=== PATIENT | male | born 1970 | race Caucasian/White ===

== ENCOUNTER → 2017-07-19 | Outpatient (CLI) | payer BC ==
[2017-07-19 13:16] VITALS: BP 143/96; PULSE 68; TEMP 98.2; BMI 36.0
--- NOTE | 2017-07-19 16:09 | P.HPBAR ---
Bariatric H&P - History & Physicial H&P Date: 07/19/17 History & Physicial: Visit/CC: lap band follow up Patient initial contact: Initial weight: Initial weight in pounds: Height: 6 ft 4 in Initial BMI: Last weight: Current weight: 134.354 kg Current weight in pounds: 296.20 Current BMI: 36.0 [place] body weight (based on NIH guidelines): 91.626 kg Excess body weight loss: The patient is a 47 year-old M who presents for Bariatric Assessment. Patient' s complaints of hunger. He has not been seen in 6 years. Past Medical History Past Medical History: Sleep Apnea/CPAP/BIPAP History of Any Multi-Drug Resistant Organisms: None Reported Past Surgical History: Bariatric Surgery, Cholecystectomy Additional Past Surgical History / Comment(s): lap band 2001 Past Anesthesia/Blood Transfusion Reactions: No Reported Reaction Past Psychological History: No Psychological Hx Reported Smoking Status: Former smoker Past Alcohol Use History: None Reported Additional Past Alcohol Use History / Comment(s): quit 2014 Past Drug Use History: None Reported Surgical - Exam Vital Signs Temp Pulse BP 98.2 F 68 143/96 07/19/17 13:12 07/19/17 13:12 07/19/17 13:12 - General well developed, no distress - Eyes PERRL - ENT normal pinna, normal nares - Abdomen Abdomen: soft, non tender Bariatric Assessment & Plan Plan: The patient LAP-BAND was adjusted. 2 mL was added to his LAP-BAND. He was able require without difficulty. Bariatric Checklist Checklist: Plan: Checklist: EGD: 1. Hiatal hernia: 2. H. Pylori: HgbA1c: Vitamin D: Smoking: Former smoker Primary care physician referral: Psychiatry clearance: Cardiology clearance: Sleep study: Diet journal: VTE risk score: VTE risk level: Rehab needs at discharge:
== END | disposition home or self-care (01) ==
LOC: BARWHC3 12:51
PROVIDERS: ATTEND Surgery
DX: Z48.815 Encounter for surgical aftercare following surgery on the digestive system (principal); Z98.84 Bariatric surgery status; Z87.891 Personal history of nicotine dependence
CPT/HCPCS: 99211

== ENCOUNTER → 2017-07-20 | Outpatient (CLI) | payer BC ==
[2017-07-20 11:10] VITALS: BP 137/98; PULSE 90; TEMP 98.2; BMI 35.3
--- NOTE | 2017-07-20 12:18 | FL ---
EXAMINATION TYPE: FL barium swallow DATE OF EXAM: 07/20/2017 CLINICAL HISTORY: Epigastric pain, dysesthesia, and gastric lap band TECHNIQUE: A single contrast esophagram is performed utilizing air and barium. A total of 1 minute and 42 seconds of fluoroscopic time was utilized during procedure. 42 fluoroscopic images were saved. COMPARISON: None FINDINGS: The esophagus shows normal motility proximally but delayed motility at the gastroesophageal junction just proximal to the gastric lap band. There is eventual passage of a small amount of contr ast through the gastric lap band after administration of contrast 3 times to induce proximal pressure . Multiple additional attempts field of the same findings. No evidence of hiatal hernia. No evidence of leak. Moderate intraesophageal reflux without gastroesophageal reflux was seen during real time p erformance of this study. IMPRESSION: Severe stricture at the gastric lap band resulting in moderate intraesophageal reflux wit h eventual passage of a small amount of contrast. No leak.
--- NOTE | 2017-09-03 09:08 | P.HPBAR ---
Bariatric H&P - History & Physicial H&P Date: 07/20/17 History & Physicial: Visit/CC: lap band Patient initial contact: Initial weight: Initial weight in pounds: Height: 6 ft 4 in Initial BMI: Last weight: Current weight: 131.723 kg Current weight in pounds: 290.40 Current BMI: 35.3 [place] body weight (based on NIH guidelines): 91.626 kg Excess body weight loss: The patient is a 47 year-old M who presents for Bariatric Assessment. Patient presents today for LAP-BAND adjustment. He states that he feels his band is too tight. He denies any abdominal pain. Past Medical History Past Medical History: Sleep Apnea/CPAP/BIPAP History of Any Multi-Drug Resistant Organisms: None Reported Past Surgical History: Bariatric Surgery, Cholecystectomy Additional Past Surgical History / Comment(s): lap band 2001 Past Anesthesia/Blood Transfusion Reactions: No Reported Reaction Past Psychological History: No Psychological Hx Reported Smoking Status: Former smoker Past Alcohol Use History: None Reported Additional Past Alcohol Use History / Comment(s): quit 2014 Past Drug Use History: None Reported Surgical - Exam Vital Signs Temp Pulse BP 98.2 F 90 137/98 07/20/17 11:07 07/20/17 11:07 07/20/17 11:07 - General well developed, no distress - Eyes PERRL - ENT normal pinna - Neck no masses - Respiratory normal expansion - Cardiovascular Rhythm: regular - Abdomen Abdomen: soft, non tender Bariatric Assessment & Plan Plan: The patient's lap band was adjusted. 0.4 mL was removed from his band. He was ill drink water without difficulty. Bariatric Checklist Checklist: Plan: Checklist: EGD: 1. Hiatal hernia: 2. H. Pylori: HgbA1c: Vitamin D: Smoking: Former smoker Primary care physician referral: Psychiatry clearance: Cardiology clearance: Sleep study: Diet journal: VTE risk score: VTE risk level: Rehab needs at discharge:
== END | disposition home or self-care (01) ==
LOC: BARWHC3 10:24
PROVIDERS: ATTEND Surgery
DX: K22.8 Other specified diseases of esophagus (principal); K21.9 Gastro-esophageal reflux disease without esophagitis; K95.09 Other complications of gastric band procedure
CPT/HCPCS: 74220; 99213

== ENCOUNTER → 2017-08-16 | Outpatient (CLI) | payer BC ==
[2017-08-16 14:40] VITALS: BP 149/86; PULSE 77; RESP 16; TEMP 98; BMI 37.4
--- NOTE | 2017-08-16 16:33 | P.HPBAR ---
Bariatric H&P - History & Physicial H&P Date: 08/16/17 History & Physicial: Visit/CC: band adj Patient initial contact: Initial weight: 134.263 kg Initial weight in pounds: 296.00 Height: 6 ft 4 in Initial BMI: 36.0 Last weight: Current weight: 139.395 kg Current weight in pounds: 307.31 Current BMI: 37.4 [place] body weight (based on NIH guidelines): 91.626 kg Excess body weight loss: The patient is a 47 year-old M who presents for Bariatric Assessment. Patient presents today for lab band follow. His complaints of hunger. He is requesting a fill. Past Medical History Past Medical History: Sleep Apnea/CPAP/BIPAP History of Any Multi-Drug Resistant Organisms: None Reported Past Surgical History: Bariatric Surgery, Cholecystectomy Additional Past Surgical History / Comment(s): lap band 2001 Past Anesthesia/Blood Transfusion Reactions: No Reported Reaction Past Psychological History: No Psychological Hx Reported Smoking Status: Former smoker Past Alcohol Use History: None Reported Additional Past Alcohol Use History / Comment(s): quit 2014 Past Drug Use History: None Reported Surgical - Exam Vital Signs Temp Pulse Resp BP 98.0 F 77 16 149/86 08/16/17 14:37 08/16/17 14:37 08/16/17 14:37 08/16/17 14:37 - General well developed, no distress - Eyes PERRL - ENT normal pinna - Neck no masses - Respiratory normal expansion - Cardiovascular Rhythm: regular - Abdomen Abdomen: soft, non tender Bariatric Assessment & Plan Plan: Patient LAP-BAND was just. He had 1 mL added to his band. He'll follow-up in 4 weeks. Bariatric Checklist Checklist: Plan: Checklist: EGD: 1. Hiatal hernia: 2. H. Pylori: HgbA1c: Vitamin D: Smoking: Former smoker Primary care physician referral: Psychiatry clearance: Cardiology clearance: Sleep study: Diet journal: VTE risk score: VTE risk level: Rehab needs at discharge:
== END | disposition home or self-care (01) ==
LOC: BARWHC3 14:08
PROVIDERS: ATTEND Surgery
DX: Z48.815 Encounter for surgical aftercare following surgery on the digestive system (principal); Z87.891 Personal history of nicotine dependence; Z90.49 Acquired absence of other specified parts of digestive tract; Z98.84 Bariatric surgery status
CPT/HCPCS: 99212